=== PATIENT | female | born 1990 | race Caucasian/White ===

== ENCOUNTER 2018-04-26 00:31 | Emergency (ER) | payer SELFPAY ==
[2018-04-26 02:36] LABS: URINE PH (Dip) POC 5.5 (5.0-8.5)
[2018-04-26 02:36] LABS: URINE BLOOD (Dip) POC 1+ (NEGATIVE); URINE GLUCOSE (Dip) POC Negative (NEGATIVE); URINE KETONES (Dip) POC Negative (NEGATIVE); URINE LEUKOCYTE EST (Dip) POC Trace (NEGATIVE); URINE NITRITE (Dip) POC Negative (NEGATIVE); URINE TOTAL PROTEIN POC Negative (NEGATIVE)
== END 2018-04-26 03:27 | disposition home or self-care (01) ==
LOC: FTE 00:31
DX: N94.10 Unspecified dyspareunia (principal)
CPT/HCPCS: 81003; 81025; 99284

== ENCOUNTER 2018-06-22 12:34 | Emergency (ER) | payer MEDICAID ==
[2018-06-22] MEDS ORDERED: ONDANSETRON (ODT) 4 MG TAB ODT (13:26)
== END 2018-06-22 16:03 | disposition left against medical advice (07) ==
LOC: FTE 12:34
DX: R10.13 Epigastric pain (principal)
CPT/HCPCS: 99282; Z7502